=== PATIENT | female | born 1965 | race Two or more races ===

== ENCOUNTER 2018-11-10 06:38 | Day surgery (SDC) | payer OTHER ==
[~2018-11-10] VITALS: Ht 152.4 cm; Wt 59.0 kg
[2018-11-10 07:13] VITALS: BP 131/69
[2018-11-10 12:25] VITALS: BP 110/65
== END 2018-11-10 12:32 | disposition home or self-care (01) ==
LOC: DS 06:38 → GI 09:30 → OR 11:30 → GI 11:30 → DS 12:32
PROVIDERS: Internal Medicine Gastroenterology
PROC: 0DB58ZX Excision of Esophagus, Via Natural or Artificial Opening Endoscopic, Diagnostic (ICD-10-PCS; principal; 2018-11-10 09:30)
PROC: 0DJD8ZZ Inspection of Lower Intestinal Tract, Via Natural or Artificial Opening Endoscopic (ICD-10-PCS; 2018-11-10 09:30)
DX: K29.70 Gastritis, unspecified, without bleeding (principal); B96.81 Helicobacter pylori [H. pylori] as the cause of diseases classified elsewhere; Z12.11 Encounter for screening for malignant neoplasm of colon; Z80.0 Family history of malignant neoplasm of digestive organs
CPT/HCPCS: 43235; 45378; J1200; J1610; J2250; J2310; J3010; J3490